=== PATIENT | female | born 2000 | race Caucasian/White ===

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

== ENCOUNTER 2020-04-07 11:30 | Emergency (ER) | payer SELFPAY ==
[~2020-04-07] VITALS: Ht 162.6 cm; Wt 90.9 kg
[2020-04-07 11:46] VITALS: BP 140/84; Ht 162.6 cm; Wt 90.9 kg
[2020-04-07] MEDS ORDERED: TYLENOL W/CODEI1 TAB PO (12:57)
== END 2020-04-07 13:56 | disposition home or self-care (01) ==
LOC: D.ER 11:30
DX: S92.301A Fracture of unspecified metatarsal bone(s), right foot, initial encounter for closed fracture (principal); W19.XXXA Unspecified fall, initial encounter; Y93.9 Activity, unspecified; M79.671 Pain in right foot; S99.921A Unspecified injury of right foot, initial encounter